=== PATIENT | female | born 1985 | race Caucasian/White ===

== ENCOUNTER 2020-11-20 12:28 | Emergency (ER) | payer SELFPAY ==
[2020-11-20 12:35] VITALS: BP 139/94
[2020-11-20] MEDS ORDERED: LIDOCAINE 1% INJ 20 ML 20 ML VIAL INJ STA (12:48)
--- NOTE | 2020-11-20 12:54 | ED Upper Extremity ---
General Chief Complaint: Laceration Stated Complaint: RT FINGER LAC Nursing Triage Note: Patient reports she was putting together a metal shed and cut her right index finger on a piece of metal. Source: patient History of Present Illness Date Seen by Provider: Nov 20, 2020 Time Seen by Provider: 12:33 Initial Comments 34 yo female presenting with complaint of laceration to right index finger. She was working on putting a shed together and when adjusting a metal piece it caught her finger. She has no numbness or tingling. She has full range of motion. Tetanus was more than 5 years ago. No other injury or complaint. Onset: just prior to arrival Pain/Injury Location: right 2nd finger Method of Injury: incised Modifying Factors: Worse With Movement Allergies and Home Medications Allergies Coded Allergies: phenazopyridine (Verified Allergy, Unknown, 11/20/20) Patient Home Medication List Home Medication List Reviewed: Yes Review of Systems Constitutional: no symptoms reported EENTM: no symptoms reported Respiratory: no symptoms reported Cardiovascular: no symptoms reported Gastrointestinal: no symptoms reported Genitourinary: no symptoms reported Musculoskeletal: see HPI, other (mild pain at site of cut distal right index finger) Skin: see HPI, other (laceration to right index finger) Psychiatric/Neurological: Denies Numbness, Denies Paresthesia Past Lyxbdmp-Pifavp-Eqcyuy Hx Patient Social History Tobacco Use?: Yes Tobacco type used: Cigarettes Smoking Status: Current Everyday Smoker Substance use?: Yes Substance type: Marijuana Alcohol Use?: No Pt feels they are or have been: No Physical Exam Vital Signs Vital Signs - First Documented 11/20/20 12:35 Temp 36.6 Pulse 83 Resp 16 B/P (MAP) 139/94 (109) Pulse Ox 99 O2 Delivery Room Air Capillary Refill : Less Than 3 Seconds Height, Weight, BMI Height: '" Weight: lbs. oz. 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 A total of 6 mL of lidocaine were infiltrated. A turnicot device was then applied. The wound was cleaned using chlorhexidine scrub soap and sterile saline. Then using 4-0 Ethilon simple interrupted stitches were placed using a total of 4 stitches to help approximate the wound edges. Patient tolerated this well without any immediate complication. Counseled on follow-up and return precautions. Progress/Results/Core Measures Results/Orders My Orders Orders - RAYRAY TUCKER MD Lidocaine 1% Inj 20 Ml (Xylocaine 1% Inj (11/20/20 12:48) Dipht,Pertuss(Acell),Tet Adult (Boostrix (11/20/20 13:00) Suture Set At Bedside (11/20/20 12:48) Medications Given in ED Current Medications Medications Dose Ordered Sig/Branden Route Start Time Stop Time Status Last Admin Dose Admin Diphtheria/ Tetanus/Acell Pertussis 0.5 ml ONCE ONCE IM 11/20/20 13:00 11/20/20 13:01 DC 11/20/20 13:39 0.5 ML Vital Signs/I&O 11/20/20 12:35 Temp 36.6 Pulse 83 Resp 16 B/P (MAP) 139/94 (109) Pulse Ox 99 O2 Delivery Room Air Blood Pressure Mean: 109 Progress Progress Note : Progress Note Update tetanus and repair the wound on the finger. Counseled on follow-up and return precautions. Advised to keep the wound clean and dry and covered when at work. Departure Impression Primary Impression: Laceration of right index finger w/o foreign body w/o damage to nail Qualified Codes: S61.210A - Laceration without foreign body of right index finger without damage to nail, initial encounter Disposition: HOME, SELF-CARE Condition: Stable Departure-Patient Inst. Decision time for Depature: 13:32 Referrals: TRAVIS CLARK MD (PCP/Family) Primary Care Physician Patient Instructions: Laceration Repair With Stitches ED Add. Discharge Instructions: Keep wound clean and dry for first 24 hours, then may wash with soap and water. Keep wound covered with dressing and antibiotic ointment when at work or when it might get dirty. stitches to be removed in 10 to 14 days with clinic or return to ER. All discharge instructions reviewed with patient and/or family. Voiced understanding. Work/School Note: Work Release Form Date Seen in the Emergency Department: Nov 20, 2020 Return to Work: Nov 21, 2020 Other Restrictions Listed Below: Keep wound clean, dry and covered until stitches out 10-14 days RAYRAY TUCKER MD Nov 20, 2020 12:54
[2020-11-20] MEDS ORDERED: TETANUS,DIPTH,PERTUSS P/F (BOOSTRIX) 0.5 ML VIAL IM ONE (13:00)
== END 2020-11-20 13:43 | disposition home or self-care (01) ==
LOC: ER FS 12:31
DX: S61.210A Laceration without foreign body of right index finger without damage to nail, initial encounter (principal); F17.210 Nicotine dependence, cigarettes, uncomplicated; Z23 Encounter for immunization; W23.1XXA Caught, crushed, jammed, or pinched between stationary objects, initial encounter
CPT/HCPCS: 12001; 90715